=== PATIENT | male | born 1980 | race Caucasian/White ===

== ENCOUNTER 2022-01-22 20:06 | Emergency (ER) | payer BC ==
[2022-01-22] MEDS ORDERED: Lidocaine 1% 10 ML MDV INJECT ONE (22:02)
[2022-01-22] MEDS ORDERED: Amoxicillin/Clavulanate K 875-125 MG Tab PO ONE (23:10)
[2022-01-22] MEDS ORDERED: Sulfamethoxazole/Trimethoprim 800-160 MG Tab PO ONE (23:29)
== END 2022-01-22 23:43 | disposition home or self-care (01) ==
LOC: JD.ED 20:06
DX: S71.142A Puncture wound with foreign body, left thigh, initial encounter (principal); W26.8XXA Contact with other sharp object(s), not elsewhere classified, initial encounter; Y99.0 Civilian activity done for income or pay
CPT/HCPCS: 73552; 99283; A9270; 10120